=== PATIENT | female | born 1970 | race Caucasian/White ===

== ENCOUNTER 2021-12-19 10:33 | Inpatient (IN) | payer OTHER, SELFPAY ==
[~2021-12-19] VITALS: Ht 172.7 cm; Wt 176.9 kg
[2021-12-19 10:51] VITALS: BP 244/125
[2021-12-19] MEDS ORDERED: ONDANSETRON 4 MG/2 ML VIAL IVP ONE (11:10)
[2021-12-19] MEDS ORDERED: NACL 0.9% 1,000 ML IV ONE (11:10)
--- NOTE | 2021-12-19 12:23 | NUR ---
Lab at bedside
[2021-12-19 13:11] LABS: BASOPHILS # (AUTO) 0.1 K/uL (0.00-0.22); BASOPHILS % (AUTO) 0.4 % (0.0-2.0); EOSINOPHILS % (AUTO) 0.2 % (0.0-4.0); HEMATOCRIT 43.7 % (36-48); HEMOGLOBIN 14.9 g/dL (12.0-16.0); LYMPHOCYTES # (AUTO) 1.4 K/uL (2.5-16.5); LYMPHOCYTES % (AUTO) 10.9 % (20.5-51.1); MEAN CORPUSCULAR HEMOGLOBIN 30 pg (27-31); MEAN CORPUSCULAR HGB CONC 34 g/dL (33-37); MEAN CORPUSCULAR VOLUME 88.3 fL (80-94); MONOCYTES # (AUTO) 0.5 K/uL (0.8-1.0); MONOCYTES % (AUTO) 4.3 % (1.7-9.3); NEUTROPHILS # (AUTO) 10.5 K/uL (1.8-7.7); NEUTROPHILS % (AUTO) 84.2 % (42.2-75.2); PLATELET COUNT (AUTO) 334 K/uL (140-450); RED BLOOD CELL COUNT(AUTO) 4.95 MIL/uL (4.20-5.40); RED CELL DISTRIBUTION WIDTH 13.1 % (11.6-13.7); WHITE BLOOD COUNT (AUTO) 12.5 K/uL (4.8-10.8)
--- NOTE | 2021-12-19 13:35 | NUR ---
51 y/o F BIB self from home c/o N/V/D, chest pain, abdominal pain x 1 day. Patient A&Ox4, ambulatory, reports generalized abdominal pain 7/10, dull/constant, non-radiating pain. Pt states at symptoms began at rest; chest pain L sided 3/10, dull, non-radiating. AccuChek 243. Denies cough, dysuria, fever, chills, headache. Bed locked in lowest position, side rails x 2. PMH: DM, HTN, HLD, A FIB Meds: lisinopril, atorvastatin, metformin, metoprolol
--- NOTE | 2021-12-19 13:40 | NUR ---
Pt ambulated to restroom. UA collected.
[2021-12-19 13:48] LABS: ANION GAP 20.2 (8-16); CARBON DIOXIDE 21.7 mmol/L (21-32); CREATININE 1.1 mg/dL (0.6-1.3); POTASSIUM 3.9 mmol/L (3.5-5.1); TOTAL BILIRUBIN 0.5 mg/dL (0.0-1.0)
[2021-12-19] MEDS ORDERED: NACL 0.9% 500 ML IV SCH (14:25)
--- NOTE | 2021-12-19 14:43 | NUR ---
Pt with both eyes closed laying on left side.
--- NOTE | 2021-12-19 14:58 | NUR ---
Pt ambulated to restroom with steady/even gait.
[2021-12-19 15:55] LABS: APPEARANCE,URINE SL CLOUDY (CLEAR); BILIRUBIN,URINE 1+ (NEGATIVE); BLOOD, URINE TRACE-I (NEGATIVE); COLOR,URINE YELLOW (YELLOW); LEUKOCYTE ESTERASE ,URINE NEGATIVE (NEGATIVE); NITRITE, URINE NEGATIVE (NEGATIVE); PH,URINE 5.5 (5.0-9.0); UGLUCOSE NEGATIVE (NEGATIVE)
[2021-12-19 16:02] LABS: RBC,URINE 0-5 /HPF (0-5); WBC,URINE 0-5 /HPF (0-5)
[2021-12-19] MEDS ORDERED: diphenhydrAMINE 50 MG/ML VIAL IVP ONE (16:10)
[2021-12-19] MEDS ORDERED: METOCLOPRAMIDE 10 MG/2 ML INJ VIAL IVP ONE (16:10)
[2021-12-19] MEDS ORDERED: KETOROLAC 30 MG/ML VIAL IVP ONE (17:25)
--- NOTE | 2021-12-19 18:17 | NUR ---
MOVED TO ER BED 13
[2021-12-19] MEDS ORDERED: KETOROLAC 30 MG/ML VIAL ONE (18:47)
[2021-12-19] MEDS ORDERED: NACL 0.9% 1,000 ML IV SCH (19:20)
[2021-12-19] MEDS ORDERED: DOCUSATE SODIUM 100 MG GELCAP PO PRN (19:20)
[2021-12-19] MEDS ORDERED: ZOLPIDEM 5 MG TAB PO PRN (19:20)
[2021-12-19] MEDS ORDERED: hydrALAZINE 20 MG/ML VIAL IVP PRN (19:20)
[2021-12-19] MEDS ORDERED: HYDROcodone/APAP 7.5/325 MG 1 TAB PO PRN (19:20)
[2021-12-19] MEDS ORDERED: DEXTROSE 50% 50 ML SYR IVP PRN (19:20)
[2021-12-19] MEDS ORDERED: INSULIN LISPRO SLIDING SCALE 100 UNITS/ML VIAL SUBQ PRN (19:20)
[2021-12-19] MEDS ORDERED: POTASSIUM CHLORIDE 10 MEQ TABER PO PRN (19:20)
[2021-12-19] MEDS ORDERED: ACETAMINOPHEN 325 MG TAB PO PRN (19:20)
[2021-12-19] MEDS ORDERED: guaiFENesin DM 200/20 MG-10 ML 10 ML UDC PO PRN (19:20)
[2021-12-19] MEDS ORDERED: lisinopriL 20 MG TAB PO SCH (19:20)
[2021-12-19] MEDS ORDERED: ONDANSETRON 4 MG/2 ML VIAL IM/IVP PRN (19:20)
--- NOTE | 2021-12-19 19:33 | NUR ---
RECEIVED REPORT FROM HARRIET OTERO AND ASSUMED CARE
[2021-12-19 19:55] LABS: CHOL/HDL RATIO 3.1 (1-4.5); FREE T4 (FREE THYROXINE) 1.2 ng/dL (0.76-1.46); MAGNESIUM 1.4 mg/dL (1.8-2.4); PHOSPHORUS 2.2 mg/dL (2.5-4.9); THYROID STIMULATING HORMONE 0.47 uIU/mL (0.34-3.74)
--- NOTE | 2021-12-19 19:58 | NUR ---
PT RETURN FROM CT
[2021-12-19 20:00] LABS: PROTHROMBIN TIME 10.2 secs (10.8-13.4)
--- NOTE | 2021-12-19 20:03 | NUR ---
PT AWAKE IN BED AT THIS TIME. ASKED FOR APPLE JUICE AND CRACKERS. WAS ABLE TO EAT THEM WITHOUT VOMITING.
[2021-12-19] MEDS: BLOOD GLUCOSE MONITORING 1 DEV DEV FS SCH (20:16)
--- NOTE | 2021-12-19 22:31 | NUR ---
PT SLEEPING IN BED AT THIS TIME. CHEST RISE AND FALL EVEN AND UNLABORED. BED LOCKED AND IN LOWEST POSITION
--- NOTE | 2021-12-20 00:14 | NUR ---
PT AWAKE IN BED AT THIS TIME. PT STATES THAT SHE IS UNABLE TO SLEEP AT THIS TIME. 0/10 PAIN. DENIES N/V.
--- NOTE | 2021-12-20 02:35 | NUR ---
PT ASLEEP IN BED WITH BED IN LOWEST POSITION AND LOCKED. NAD AT THIS TIME
--- NOTE | 2021-12-20 04:15 | NUR ---
IV IN RIGHT ARM INFILTRATED. NEW IV INSERTED IN LEFT ARM
--- NOTE | 2021-12-20 04:53 | NUR ---
patient c/o of pain 07/07 sellers. attempted to sleep it off with no relief. provided PRN medication for pain. Patient also has BP 190s/110s. will continue to monitor BP-- hydralazine already given.
--- NOTE | 2021-12-20 05:42 | NUR ---
patient ambulated to the bathroom. patient currently vomiting in the bathroom.
--- NOTE | 2021-12-20 07:51 | NUR ---
Assumed care of pt at this time.
--- NOTE | 2021-12-20 08:00 | NUR ---
Pt is sleeping comfortably in bed at this time. Resp even and unlabored on RA. VSS. Safety measures in place. Call light in reach
[2021-12-20] MEDS: BLOOD GLUCOSE MONITORING 1 DEV DEV FS SCH (08:01)
[2021-12-20] MEDS ORDERED: PANTOPRAZOLE 40 MG TABEC PO SCH (09:00)
--- NOTE | 2021-12-20 09:20 | NUR ---
PATIENT HAS BEEN SCREENED AND CATEGORIZED LOW NUTRITION RISK. PATIENT WILL BE SEEN WITHIN 7 DAYS OF ADMISSION. 12/26/[address]
[2021-12-20] MEDS ORDERED: MAGNESIUM OXIDE 400 MG TAB PO SCH (10:10)
[2021-12-20] MEDS ORDERED: lisinopriL 20 MG TAB PO SCH (10:10)
[2021-12-20 10:11] LABS: ANION GAP 13.2 (8-16); CARBON DIOXIDE 28.3 mmol/L (21-32); CREATININE 0.9 mg/dL (0.6-1.3); POTASSIUM 3.5 mmol/L (3.5-5.1)
[2021-12-20] MEDS ORDERED: metFORMIN 850 MG TAB PO SCH (10:15)
[2021-12-20] MEDS ORDERED: METOPROLOL 25 MG TAB PO SCH (10:15)
[2021-12-20 10:22] LABS: BASOPHILS % (AUTO) 0.3 % (0.0-2.0); EOSINOPHILS % (AUTO) 0.2 % (0.0-4.0); HEMATOCRIT 40.5 % (36-48); LYMPHOCYTES % (AUTO) 17.7 % (20.5-51.1); MEAN CORPUSCULAR HEMOGLOBIN 30 pg (27-31); MEAN CORPUSCULAR HGB CONC 35 g/dL (33-37); MEAN CORPUSCULAR VOLUME 87.6 fL (80-94); MONOCYTES # (AUTO) 0.6 K/uL (0.8-1.0); MONOCYTES % (AUTO) 5.6 % (1.7-9.3); NEUTROPHILS # (AUTO) 8.7 K/uL (1.8-7.7); NEUTROPHILS % (AUTO) 76.2 % (42.2-75.2); PLATELET COUNT (AUTO) 321 K/uL (140-450); RED BLOOD CELL COUNT(AUTO) 4.63 MIL/uL (4.20-5.40); RED CELL DISTRIBUTION WIDTH 12.8 % (11.6-13.7); WHITE BLOOD COUNT (AUTO) 11.3 K/uL (4.8-10.8)
--- NOTE | 2021-12-20 11:18 | NUR ---
DR TOBIN AT BEDSIDE TO CONSULT WITH PT. PT IS CLEARED FROM HIS STANDPOINT AT THIS ITME. DR SOTELO MADE AWARE.
[2021-12-20 11:26] VITALS: BP 147/80
--- NOTE | 2021-12-20 12:10 | NUR ---
Informed Dr Campo that the pt will be leaving AMA.
--- NOTE | 2021-12-20 12:20 | NUR ---
Patient does not wish to proceed with medical care recommended by Dr Campo. Patient given information related to possible complications, up to and including , which could occur as a result of leaving hospital at this time. Patient verbalizes understanding of risks involved leaving against medical advice. Patient has signed AMA form at this time. IV removed, WNL. Pt took all valuables and belongings with her.
[2021-12-20] MEDS ORDERED: SODIUM PHOS / POTASSIUM PHOS 1 PKT PDR PO SCH (13:00)
[2021-12-21 08:07] LABS: T4 (THYROXINE) 10.3 ug/dL (4.5-12.0)
== END 2021-12-20 12:20 | disposition left against medical advice (07) | DRG 313 ==
LOC: MED 10:33 → MMU 19:19
PROVIDERS: ADMIT Family Medicine; ATTEND Family Medicine
DX: R07.89 Other chest pain (principal); I16.1 Hypertensive emergency; Z68.43 Body mass index [BMI] 50.0-59.9, adult; E11.9 Type 2 diabetes mellitus without complications; E66.01 Morbid (severe) obesity due to excess calories; E78.2 Mixed hyperlipidemia; E83.39 Other disorders of phosphorus metabolism; E83.42 Hypomagnesemia; E86.0 Dehydration; Z20.822 Contact with and (suspected) exposure to COVID-19; I10 Essential (primary) hypertension; I48.91 Unspecified atrial fibrillation; Z79.4 Long term (current) use of insulin; Z90.49 Acquired absence of other specified parts of digestive tract
CPT/HCPCS: 36415; 70450; 71045; 80048; 80053; 81001; 81025; 82150; 83036; 83605; 83690; 83735; 83880; 84100; 84436; 84439; 84443; 84479; 84484; 84703; 85025; 85610; 85730; 87040; 93005; 96374; 96375; 99285; J0360; J1200; J1885; J2405; J2765